=== PATIENT | male | born 1945 | race Caucasian/White ===

== ENCOUNTER 2022-10-21 15:42 | Emergency (ER) | payer MEDICARE, SELFPAY ==
[2022-10-21] VITALS (8 sets, daily range): BP systolic 173–178; BP diastolic 90–117; PULSE 67–82; RESP 16–24; TEMP 36.4; O2SAT 92–95; BMI 24.3
--- NOTE | 2022-10-21 15:43 | XRR_ITS ---
PROCEDURE INFORMATION: Exam: XR Chest Exam date and time: 10/21/2022 4:01 PM Age: 77 years old Clinical indication: Cough TECHNIQUE: Imaging protocol: Radiologic exam of the chest. Views: 1 view. COMPARISON: No relevant prior studies available. FINDINGS: Lungs: Right lower lobe pneumonia. Emphysematous changes. Pleural spaces: Unremarkable. No pleural effusion. No pneumothorax. Heart/Mediastinum: Unremarkable. No cardiomegaly. Bones/joints: Unremarkable. XR/XR chest 1V portable [id number] IMPRESSION: 1. Right lower lobe pneumonia. 2. Emphysematous changes.
--- NOTE | 2022-10-21 15:57 | W.ED.GENADLT ---
HPI - General Adult General: Chief complaint: General Medical Stated complaint: Coughing up blood Time Seen by Provider: 10/21/22 15:57 History of Present Illness: Mr. Bravo is a 77-year-old gentleman with history of tobaccoism though no longer smoker presenting to the emergency department for hematemesis. He notes symptoms began acutely approximately 1 week ago. He did not have significant cough preceding this and has persisted since that time. He notes essentially every time he coughs he has some dark red blood. He presents with a jar of saturated tissues that have just occurred today. He does note near baseline shortness of breath, denies other infectious symptoms. He saw PCP and was initiated on a course of antibiotics and steroids however symptoms persisted. He is not on anticoagulation. No other specific changes in health, exacerbating, or alleviating factors identified. Onset (ago): day(s) Severity: moderate Relieving factors: none Exacerbating factors: other Associated symptoms: Reports cough Review of Systems General: Reports: 10 or more systems reviewed and unremarkable except in HPI and below PFSH ED PFSH: Medical History History of smoking Surgical History (Updated 10/21/22 @ 16:23 by Ryan Cervantes MD) History of surgery of head Physical Exam Const: COMMON NORMALS: alert GENERAL APPEARANCE: cooperative, well developed and ill appearing (Mildly) HENMT: COMMON NORMALS: normocephalic and atraumatic HEAD & SCALP: normocephalic and atraumatic Eye: COMMON NORMALS: conjunctivae normal CONJUNCTIVA: Yes conjunctivae normal SCLERA: sclerae normal Neck/C-Spine: COMMON NORMALS: supple GENERAL: Yes trachea midline Resp: EFFORT & INSPECTION: Yes able to speak in complete sentences and Yes tachypneic AUSCULTATION: rhonchi Cardio: COMMON NORMALS: regular rate and regular rhythm RATE: regular rate RHYTHM: regular rhythm GI: COMMON NORMALS: Soft to palpation PALPATION: Yes Soft to palpation and No Tenderness to palpation present (GI) PERCUSSION: normal to percussion Extremity: GENERAL: Yes normal exam except as noted and No edema Neuro: COMMON NORMALS: moves all extremities SENSORIUM/ORIENTATION: Yes alert and No Orientation impaired Psych: COMMON NORMALS: mental status grossly normal and Normal thought process present THOUGHT PROCESS: Normal thought process present Course Vital Signs: Vital signs: Vital Signs Temperature 97.5 F L 10/21/22 15:47 Pulse Rate 77 03/19/23 21:14 Respiratory Rate 18 10/21/22 22:49 Blood Pressure 173/90 10/21/22 21:14 Pulse Oximetry 95 10/21/22 22:49 Oxygen Delivery Me thod 10/21/22 21:14 MDM - General Adult Medical Decision Making 77-year-old gentleman presenting with 1 week history of hemoptysis that started acutely without known provoking event. He has seen his primary care provider and has failed to improve on outpatient antibiotics. He presents with a glass jar filled with tissue that demonstrates dark red blood and reports that he is filled this 1 today and had 2 more that he filled over the past 10 days. Vitally patient is satisfactory and is nontoxic in appearance. Labs with no hematologic or significant metabolic abnormality. INR is normal. PCR viral panel is negative. Chest x-ray demonstrates concerning findings for pneumonia. Given hemoptysis and absence of other typical symptoms for pneumonia CTA is appropriate. CTA does not demonstrate clear etiology of patient's symptoms, he does have right middle lobe pneumonia and patchy right lower lobe groundglass opacities as well as mild mediastinal lymphadenopathy. Patient continues to have mild hemoptysis while in the emergency department. During ED course he was treated with steroids, RT treatment, cefepime and doxycycline for pneumonia. This is far more hemoptysis than I would expect from even a severe pneumonia and I am quite concerned for a bronchial lesion. We do not have pulmonology available at our facility at this time and in discussion with hospitalist service patient will almost certainly require pulmonology evaluation including bronchoscopy. Therefore we will look for transfer. The results of ED evaluation were discussed with the patient including plan for transfer due to requirement for level of care not available if discharged to prevent significant worsening/deterioration. Patient agreeable with plan. Patient accepted by Dr. Smith at [facility]. This is unfortunately the closest facility with appropriate subspecialty care and bed availability. Patient will be transferred via EMS. Medical Records I reviewed the patient's medical records. Lab Data I reviewed the patient's lab results. 10/21/22 16:17 10/21/22 16:17 Radiology Impressions Chest X-Ray 10/21/22 15:43 IMPRESSION: 1. Right lower lobe pneumonia. 2. Emphysematous changes. Chest CTA 10/21/22 16:06 IMPRESSION: 1. Negative for pulmonary embolus. 2. Right middle lobe pneumonic infiltrate, follow-up exam and 1 month to ensure resolution advised. Additional patchy right lower lobe ground-glass airspace infiltrates are suspected. 3. Several prominent mediastinal and hilar measuring to 9.5 mm, nonspecific. 4. Hepatic steatosis. 5. Diverticulosis without diverticulitis. 6. Coronary artery atherosclerotic calcifications. 7. Right kidney cyst, negative for follow-up advised. 8. Right kidney punctate nonobstructing calculus. 9. Scattered punctate benign pancreatic calcifications. Laboratory Results WBC 8.2 10^3/uL (4.0-10.0) 10/21/22 16:17 RBC 5.12 10^6/uL (4.1-5.3) 10/21/22 16:17 Hgb 14.8 g/dL (11.7-16.6) 10/21/22 16:17 Hct 45.4 % (42.0-52.0) 10/21/22 16:17 MCV 88.7 fl (80-94) 10/21/22 16:17 MCH 28.9 pg (28.0-34.0) 10/21/22 16:17 MCHC 32.6 g/dL (30.0-36.0) 10/21/22 16:17 RDW 13.8 % (12.1-15.1) 10/21/22 16:17 Plt Count 361 10^3/cmm (130-400) 10/21/22 16:17 MPV 8.7 fL (7.4-10.4) 10/21/22 16:17 Neut % (Auto) 71.1 % 10/21/22 16:17 Lymph % (Auto) 17.4 % 10/21/22 16:17 Wake % (Auto) 8.6 % 10/21/22 16:17 Eos % (Auto) 1.8 % 10/21/22 16:17 Baso % (Auto) 0.6 % 10/21/22 16:17 Neut # (Auto) 5.80 10^3/uL (1.8-7.7) 10/21/22 16:17 Lymph # (Auto) 1.4 10^3/uL (0.8-4.8) 10/21/22 16:17 Wake # (Auto) 0.7 10^3/uL (0.2-0.9) 10/21/22 16:17 Eos # (Auto) 0.2 10^3/uL (0.0-0.8) 10/21/22 16:17 Baso # (Auto) 0.1 10^3/uL (0.0-0.1) 10/21/22 16:17 Nucleated RBC % (auto) 0 % 10/21/22 16:17 Nucleated RBCs # 0.0 /100WBC 10/21/22 16:17 PT 14.20 SECONDS (12.1-14.9) 10/21/22 16:17 INR 1.06 (0.8-1.2) 10/21/22 16:17 APTT 31.4 SECONDS (23.9-36.7) 10/21/22 16:17 Sodium 138 mmol/L (136-145) 10/21/22 16:17 Potassium 4.0 mmol/L (3.5-5.1) 10/21/22 16:17 Chloride 100 mmol/L (98-107) 10/21/22 16:17 Carbon Dioxide 25 mmol/L (22-29) 10/21/22 16:17 Anion Gap 17.0 (5-19) 10/21/22 16:17 BUN 17 mg/dL (8-23) 10/21/22 16:17 Creatinine 0.8 mg/dL (0.7-1.2) 10/21/22 16:17 GFR Calculation Not Reportable 10/21/22 16:17 Glucose 110 mg/dL (65-115) 10/21/22 16:17 Calculated Osmolality 288 mOsm/kg (285-295) 10/21/22 16:17 Lactic Acid 1.0 mmol/L (0.5-2.2) 10/21/22 16:17 Calcium 9.9 mg/dL (8.5-10.5) 10/21/22 16:17 Total Bilirubin 0.4 mg/dL (0.15-1.2) 10/21/22 16:17 AST 23 U/L (0-40) 10/21/22 16:17 ALT 13 U/L (0-41) 10/21/22 16:17 Alkaline Phosphatase 115 U/L (40-130) 10/21/22 16:17 C-Reactive Protein 11.5 mg/L (0.0-4.9) H 10/21/22 16:17 NT-Pro-B Natriuret Pep 145 pg/mL (0-450) 10/21/22 16:17 Total Protein 8.0 g/dL (6.6-8.7) 10/21/22 16:17 Albumin 4.7 g/dL (3.5-5.2) 10/21/22 16:17 Globulin 3.3 g/dL (1.3-4.6) 10/21/22 16:17 Procalcitonin 0.04 ng/mL (0-0.5) 10/21/22 16:17 TSH 0.92 uIU/mL (0.27-4.20) 10/21/22 16:17 Nasal Influ A H1 2008 PCR Not detected (NOT DETECT) 10/21/22 16:15 Adenovirus (PCR) Not detected (NOT DETECT) 10/21/22 16:15 C. pneumoniae DNA (PCR) Not detected (NOT DETECT) 10/21/22 16:15 Coronavirus 229E (PCR) Not detected (NOT DETECT) 10/21/22 16:15 Human Metapneumovir PCR Not detected (NOT DETECT) 10/21/22 16:15 Influenza A (H1) PCR Not detected (NOT DETECT) 10/21/22 16:15 Influenza A (H3) PCR Not detected (NOT DETECT) 10/21/22 16:15 Influenza Type A (PCR) Not detected (NOT DETECT) 10/21/22 16:15 Influenza Type B (PCR) Not detected (NOT DETECT) 10/21/22 16:15 M. pneumoniae (PCR) Not detected (NOT DETECT) 10/21/22 16:15 Parainfluenza 1 (PCR) Not detected (NOT DETECT) 10/21/22 16:15 Parainfluenza 2 (PCR) Not detected (NOT DETECT) 10/21/22 16:15 Parainfluenza 3 (PCR) Not detected (NOT DETECT) 10/21/22 16:15 Parainfluenza 4 (PCR) Not detected (NOT DETECT) 10/21/22 16:15 RSV Type A (PCR) Not detected (NOT DETECT) 10/21/22 16:15 RSV Type B (PCR) Not detected (NOT DETECT) 10/21/22 16:15 Entero/Rhino (PCR) Not detected (NOT DETECT) 10/21/22 16:15 SARS-CoV-2 (PCR) Not detected (NOT DETECT) 10/21/22 16:15 Blood Type A Positive 10/21/22 16:55 Rho(D) Type Positive 10/21/22 16:55 Antibody Screen Negative 10/21/22 16:55 Discharge Plan Discharge Patient Disposition: Xfer Short-Term Hosp Clinical Impression: Cough with hemoptysis, History of smoking, Pneumonia Condition: Stable Coding Level of Care Code ED Past Due Accounts Clerk for Vasiliy Bell
--- NOTE | 2022-10-21 16:06 | CTR_ITS ---
PROCEDURE INFORMATION: Exam: CTA Chest With Contrast Exam date and time: 10/21/2022 5:35 PM Age: 77 years old Clinical indication: Other: Hemoptysis TECHNIQUE: Imaging protocol: Computed tomographic angiography of the chest with contrast. 3D rendering (Not supervised by radiologist): MIP and/or 3D reconstructed images were created by the technologist. Radiation optimization: All CT scans at this facility use at least one of these dose optimization techniques: automated exposure control; mA and/or kV adjustment per patient size (includes targeted exams where dose is matched to clinical indication); or iterative reconstruction. Contrast material: OMNI 350; Contrast volume: 66 ml; Contrast route: INTRAVENOUS (IV); REPORTING DATA: Count of CT and Cardiac NM exams in prior 12 months: This patient has received 0 known CTs and 0 known cardiac nuclear medicine studies in the 12 months prior to the current study. COMPARISON: CR (CHEST, ) 10/21/2022 4:01 PM RADIATION DOSE METRICS: Total DLP (mGy-cm): 368.54 FINDINGS: Pulmonary arteries: Normal. No pulmonary emboli. Aorta: Unremarkable. No aortic aneurysm. No aortic dissection. Lungs: Right middle lobe pneumonic infiltrate, follow-up exam an 1 month to ensure resolution advised. Additional patchy right lower lobe ground-glass airspace infiltrates are suspected. Pleural spaces: Unremarkable. No pneumothorax. No pleural effusion. Heart: Unremarkable. No cardiomegaly. No pericardial effusion. Coronary arteries: Coronary artery atherosclerotic calcifications. Lymph nodes: Unremarkable. No enlarged lymph nodes. Stomach and bowel: Diverticulosis without diverticulitis. Bones/joints: Unremarkable. No acute fracture. Soft tissues: Unremarkable. Other findings: Several prominent mediastinal and hilar measuring to 9.5 mm, nonspecific. Hepatic steatosis. Right kidney cyst, negative for follow-up advised. Right kidney punctate nonobstructing calculus. Scattered punctate benign pancreatic calcifications. CT/CT angio chest PE protcl [id number] IMPRESSION: 1. Negative for pulmonary embolus. 2. Right middle lobe pneumonic infiltrate, follow-up exam and 1 month to ensure resolution advised. Additional patchy right lower lobe ground-glass airspace infiltrates are suspected. 3. Several prominent mediastinal and hilar measuring to 9.5 mm, nonspecific. 4. Hepatic steatosis. 5. Diverticulosis without diverticulitis. 6. Coronary artery atherosclerotic calcifications. 7. Right kidney cyst, negative for follow-up advised. 8. Right kidney punctate nonobstructing calculus. 9. Scattered punctate benign pancreatic calcifications.
--- NOTE | 2022-10-21 16:07 | ECG_ITS ---
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
[2022-10-21] MEDS: iohexol 350 mg/mL 500 mL Btl (per mL) IV (16:19)
[2022-10-21 16:39] LABS: INR 1.06 (0.8-1.2)
[2022-10-21 16:40] LABS: Partial Thromboplastin Time 31.4 SECONDS (23.9-36.7)
[2022-10-21 16:42] LABS: Basophils # 0.1 10^3/uL (0.0-0.1); Basophils % 0.6 %; Eosinophils # 0.2 10^3/uL (0.0-0.8); Eosinophils % 1.8 %; Hematocrit 45.4 % (42.0-52.0); Hemoglobin 14.8 g/dL (11.7-16.6); Lymphocytes # 1.4 10^3/uL (0.8-4.8); Lymphocytes % 17.4 %; Mean Corpuscular HGB Conc 32.6 g/dL (30.0-36.0); Mean Corpuscular Hemoglobin 28.9 pg (28.0-34.0); Mean Corpuscular Volume 88.7 fl (80-94); Mean Platelet Volume 8.7 fL (7.4-10.4); Monocytes # 0.7 10^3/uL (0.2-0.9); Monocytes % 8.6 %; Neutrophils % 71.1 %; Nucleated Red Blood Cells % 0 %; Platelet Count 361 10^3/cmm (130-400); Red Blood Count 5.12 10^6/uL (4.1-5.3); Red Cell Distribution Width 13.8 % (12.1-15.1); White Blood Count 8.2 10^3/uL (4.0-10.0)
[2022-10-21 16:56] LABS: NT Pro B Type Natriuretic Pept 145 pg/mL (0-450); Procalcitonin 0.04 ng/mL (0-0.5); Thyroid Stimulating Hormone 0.92 uIU/mL (0.27-4.20)
[2022-10-21 17:07] LABS: Alanine Aminotransferase 13 U/L (0-41); Albumin Level 4.7 g/dL (3.5-5.2); Alkaline Phosphatase 115 U/L (40-130); Aspartate Amino Transferase 23 U/L (0-40); Blood Urea Nitrogen 17 mg/dL (8-23); C Reactive Protein 11.5 mg/L (0.0-4.9); Calcium 9.9 mg/dL (8.5-10.5); Carbon Dioxide 25 mmol/L (22-29); Chloride 100 mmol/L (98-107); Creatinine Clr Calc Pharmacy 81.6423; Globulin 3.3 g/dL (1.3-4.6); Glucose 110 mg/dL (65-115); Osmolality Calculated 288 mOsm/kg (285-295); Sodium 138 mmol/L (136-145); Total Bilirubin 0.4 mg/dL (0.15-1.2)
[2022-10-21] MEDS: cefepime 2,000 MG in sodium chloride 0.9% (plus) 50 ML 100 MG IV (18:22)
[2022-10-21 18:25] LABS: Adenovirus Not Detected (NOT DETECT); Chlamydia Pneumoniae Not Detected (NOT DETECT); Coronavirus 229E,HKU1,NL63,OC4 Not Detected (NOT DETECT); Human Metapneumovirus Not Detected (NOT DETECT); Human Rhinovirus/Enterovirus Not Detected (NOT DETECT); Influenza A Not Detected (NOT DETECT); Influenza A H1 Not Detected (NOT DETECT); Influenza A H1-2009 Not Detected (NOT DETECT); Influenza A H3 Not Detected (NOT DETECT); Influenza B Not Detected (NOT DETECT); Mycoplasma Pneumoniae Not Detected (NOT DETECT); Parainfluenza Virus Type 1 Not Detected (NOT DETECT); Parainfluenza Virus Type 2 Not Detected (NOT DETECT); Parainfluenza Virus Type 3 Not Detected (NOT DETECT); Parainfluenza Virus Type 4 Not Detected (NOT DETECT); Respiratory Syncytial Virus A Not Detected (NOT DETECT); Respiratory Syncytial Virus B Not Detected (NOT DETECT); SARS-COV-2 Not Detected (NOT DETECT)
[2022-10-21] MEDS: doxycycline 100 MG in sodium chloride 0.9% (plus) 100 ML IV (18:35)
[2022-10-21] MEDS: ipratropium-albuterol 3 mL Neb INHALATION (18:36)
[2022-10-21] MEDS: morphine 4 mg/mL SDV 1 mL IVP (21:34)
--- NOTE | 2022-10-25 11:20 | DCPLANNER ---
Addendum entered by Katharine Stinson 10/25/22 13:17: traffic incident management manager called patient due to no primary care physician - no answer at this time Original Note: 10.24.22 - TCM called patient due to no primary care physician - no answer at this time
== END 2022-10-21 22:55 | disposition short-term general hospital (02) ==
PROVIDERS: Emergency Provider Emergency Medicine
DX: R04.2 Hemoptysis (principal); J18.9 Pneumonia, unspecified organism; Z87.891 Personal history of nicotine dependence; Z20.822 Contact with and (suspected) exposure to COVID-19; K76.0 Fatty (change of) liver, not elsewhere classified; K57.90 Diverticulosis of intestine, part unspecified, without perforation or abscess without bleeding; N20.0 Calculus of kidney
CPT/HCPCS: 71045; 71275; 80053; 83605; 83880; 84145; 84443; 85025; 85610; 85730; 86140; 86850; 86900; 87040; 87486; 87581; 87633; 93005; 94640; 96365; 96367; 96375; 99285; J0692; J2270; J2930; J3490; Q9967

== ENCOUNTER 2023-11-19 05:24 | Emergency (ER) | payer MEDICARE, SELFPAY ==
[2023-11-19 05:26] VITALS: BP 189/99; PULSE 85; RESP 16; TEMP 35.6; O2SAT 100; BMI 25.0
--- NOTE | 2023-11-19 05:36 | ECG_ITS ---
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 Measurements Intervals [place] Rate: 92 P: 78 AL: 185 QRS: 79 QRSD: 88 T: 74 QT: 339 QTc: 420 Interpretive Statements SINUS RHYTHM Compared to ECG 10/21/2022 16:27:14 No significant changes Electronically Signed On 11-19-2023 12:28:23 CDT by Bala Jean M.D. [id number]
--- NOTE | 2023-11-19 05:45 | ED_ITS ---
Documented by User: Guillaume Mackenzie MD 11/19/23 06:22 HPI - GI Bleed 2 General: Chief complaint: GI Bleed Stated complaint: ABD PAIN Time Seen by Provider: 11/19/23 05:32 History of Present Illness: 78-year-old male presents emergency depa rtment via EMS personnel. Patient states that he is concerned that he is having black hard stools with blood. He states that he is recently been discharged from [facility] and thinks he was seen there for fever and chills. He states that he has noticed when he wipes himself after having a bowel movement he is noted some streaks of blood on the toilet paper. He states he feels like he is having difficulty with bowel movements and stated that he did have a bowel movement approximately 3 hours ago and was noted to have blood on the tissue paper at that time. Associated symptoms: Reports abdominal pain Review of Systems 2 General: Reports: 10 or more systems reviewed and unremarkable except in HPI and below GI: Reports: abdominal pain, constipation, pain on defecation, hematochezia and melena [facility] ED 2 PFSH: Medical History History of smoking Surgical History (Updated 10/21/22 @ 16:23 by Ryan Cervantes MD) History of surgery of head Physical Exam 2 Narrative: EXAM NARRATIVE: Constitutional: the patient appears well nourished and of normal development. Vital signs as documented. No acute distress at present. Alert and oriented-to person, place, time and situation. Head, eyes, ears, nose, mouth, throat: Normocephalic, atraumatic. Pupils-equal, round, reactive to light. No scleral icterus. Normal-appearing external ears. Normal appearing nasal turbinates, no drainage. No obvious oral lesions, posterior oropharynx without erythema or exudates. Neck: Supple, trachea is midline, no lymphadenopathy, no jugular venous distension, thyromegaly, or carotid bruits. Carotid upstrokes are brisk bilaterally. Lungs: clear to auscultation to all lung hahn. Symmetrical rise and fall of chest, no obvious signs of increased work of breathing at present. Cardiac: Regular rate and rhythm, positive S1, S2. No murmurs, rubs or gallops that I can appreciate Abdomen: Soft, non-tender to palpation, normal active bowel sounds to all quadrants. No palpable masses, no organomegaly and abdominal bruits. Extremities: 2+ pulses in the upper extremities that are equal bilaterally, 2+ pulses in the lower extremities that are equal bilaterally. Non-edematous. Moves all extremities well, sensation to all extremities are noted. Skin: Warm, dry, intact. Course 2 Vital Signs: Vital signs: Vital Signs Temperature 96.0 F L 11/19/23 05:26 Pulse Rate 93 11/19/23 07:04 Respiratory Rate 21 H 11/19/23 08:52 Blood Pressure 167/109 11/19/23 07:04 Pulse Oximetry 100 11/19/23 08:52 Oxygen Delivery Me thod Room Air 11/19/23 07:04 MDM - GI Bleed Medical Decision Making I have discussed the patient's case with the on-coming physician <Dr. Light > and they have assumed care of the patient. We have discussed the current lab/radiographic results that have been resulted and the pending tests. Medical Records I reviewed the patient's medical records. Lab Data 11/19/23 05:45 11/19/23 05:45 Laboratory Results WBC 6.14 10^3/uL (3.29-11.43) 11/19/23 05:45 RBC 4.57 10^6/uL (3.85-5.65) 11/19/23 05:45 Hgb 11.10 g/dL (11.27-16.99) L 11/19/23 05:45 Hct 36.0 % (37-53) L 11/19/23 05:45 MCV 78.8 fl (82-101) L 11/19/23 05:45 MCH 24.3 pg (27-33) L 11/19/23 05:45 MCHC 30.8 g/dL (30-55) 11/19/23 05:45 RDW 23.7 % (12.1-15.1) H 11/19/23 05:45 Plt Count 299 10^3/cmm (157-399) 11/19/23 05:45 MPV 8.3 fL (7.4-10.4) 11/19/23 05:45 Neut % (Auto) 66.4 % 11/19/23 05:45 Lymph % (Auto) 19.9 % 11/19/23 05:45 Frio % (Auto) 9.8 % 11/19/23 05:45 Eos % (Auto) 2.9 % 11/19/23 05:45 Baso % (Auto) 0.8 % 11/19/23 05:45 Neut # (Auto) 4.08 10^3/uL (1.8-7.7) 11/19/23 05:45 Lymph # (Auto) 1.2 10^3/uL (0.8-4.8) 11/19/23 05:45 Frio # (Auto) 0.6 10^3/uL (0.2-0.9) 11/19/23 05:45 Eos # (Auto) 0.2 10^3/uL (0.0-0.8) 11/19/23 05:45 Baso # (Auto) 0.1 10^3/uL (0.0-0.1) 11/19/23 05:45 Nucleated RBC % (auto) 0 % 11/19/23 05:45 Nucleated RBCs # 0.0 /100WBC 11/19/23 05:45 PT 13.70 SECONDS (12.1-14.9) 11/19/23 05:45 INR 1.02 (0.8-1.2) 11/19/23 05:45 APTT 32.3 SECONDS (23.9-36.7) 11/19/23 05:45 Sodium 139 mmol/L (136-145) 11/19/23 05:45 Potassium 4.1 mmol/L (3.5-5.1) 11/19/23 05:45 Chloride 103 mmol/L (98-107) 11/19/23 05:45 Carbon Dioxide 25 mmol/L (22-29) 11/19/23 05:45 Anion Gap 15.1 (5-19) 11/19/23 05:45 BUN 15 mg/dL (8-23) 11/19/23 05:45 Creatinine 0.6 mg/dL (0.7-1.2) L 11/19/23 05:45 GFR Calculation Not Reportable 11/19/23 05:45 Glucose 98 mg/dL (65-115) 11/19/23 05:45 Calculated Osmolality 289 mOsm/kg (285-295) 11/19/23 05:45 Calcium 9.7 mg/dL (8.5-10.5) 11/19/23 05:45 Total Bilirubin 0.3 mg/dL (0.15-1.2) 11/19/23 05:45 AST 18 U/L (0-40) 11/19/23 05:45 ALT 10 U/L (0-41) 11/19/23 05:45 Alkaline Phosphatase 115 U/L (40-130) 11/19/23 05:45 Total Protein 7.4 g/dL (6.6-8.7) 11/19/23 05:45 Albumin 4.2 g/dL (3.5-5.2) 11/19/23 05:45 Globulin 3.2 g/dL (1.3-4.6) 11/19/23 05:45 Lipase 12 U/L (13-60) L 11/19/23 05:45 All radiology interpretation(s) finalized by discharge Discharge Plan Discharge Patient Disposition: Home Clinical Impression: Hematochezia Low back pain Qualifiers: Chronicity: acute Back pain laterality: bilateral Sciatica presence: without sciatica Qualified Code(s): M54.50 - Low back pain, unspecified Condition: Stable Prescriptions: No Action ipratropium-albuterol 0.5 mg-3 mg(2.5 mg base)/3 mL solution for nebulization See Rx Instructions .ROUTE .COMPLEX Rx Instructions: Inhale THE contents of 1 vial PER NEBULIZER FOUR TIMES DAILY OR DIRECTED clopidogrel 75 mg tablet 75 mg PO DAILY hydrocodone-acetaminophen 10-325 mg tablet 1 tab PO Q6H PRN (Reason: Pain) aspirin 81 mg tablet,delayed release (DR/EC) 81 mg PO QAM tramadol 50 mg tablet 50 mg PO Q6H PRN (Reason: Pain, Moderate) amitriptyline 50 mg tablet 50 mg PO BEDTIME PRN (Reason: Sleep) magnesium oxide 400 mg (241.3 mg magnesium) tablet 400 mg PO DAILY tamsulosin 0.4 mg capsule 0.4 mg PO BEDTIME ropinirole 2 mg tablet 2 mg PO BEDTIME pantoprazole 40 mg tablet,delayed release (DR/EC) 40 mg PO BID FeroSul 325 mg (65 mg iron) tablet 325 mg PO BID gabapentin 300 mg capsule See Rx Instructions .ROUTE .COMPLEX Rx Instructions: TAKE THREE CAPSULES BY MOUTH THREE TIMES DAILY AND 2 CAPSULES EVERY NIGHT AT BEDTIME metoclopramide HCl 10 mg tablet See Rx Instructions .ROUTE .COMPLEX Rx Instructions: TAKE ONE TABLET BY MOUTH one hour before meals rosuvastatin 10 mg tablet See Rx Instructions .ROUTE .COMPLEX Rx Instructions: TAKE ONE TABLET BY MOUTH AT bedtime ON Saturday,Saturday, AND Saturday Discharge Orders: Discharge ED (Routine); Ordered 11/19/23 Ordered By: Adelfo Light Patient Instructions: Gastrointestinal Bleeding (ED), Acute Low Back Pain (ED) Activity Restrictions/Additional Instructions: Your evaluation in the ER which included lab work and CT scan did not show any acute cause of your low back pain or lower GI bleeding. Please follow-up with your family practice physician within next 7 days for further evaluation testing. This may include being referred to a GI specialist and/or colonoscopy. Coding Level of Care Code ED Continuity Manager for Chg Fwd Documented by User: Adelfo Light DO 11/19/23 15:48 HPI - GI Bleed 2 General: Chief complaint: GI Bleed Stated complaint: ABD PAIN Time Seen by Provider: 11/19/23 05:32 [facility] ED 2 PFSH: Medical History History of smoking Surgical History (Updated 10/21/22 @ 16:23 by Ryan Cervantes MD) History of surgery of head Course 2 Vital Signs: Vital signs: Vital Signs Temperature 96.0 F L 11/19/23 05:26 Pulse Rate 93 11/19/23 07:04 Respiratory Rate 21 H 11/19/23 08:52 Blood Pressure 167/109 11/19/23 07:04 Pulse Oximetry 100 11/19/23 08:52 Oxygen Delivery Me thod Room Air 11/19/23 07:04 MDM - GI Bleed Medical Decision Making I have discussed the patient's case with the on-coming physician <Dr. Light > and they have assumed care of the patient. We have discussed the current lab/radiographic results that have been resulted and the pending tests. Care was transferred to myself after shift change. Lab work was obtained which was essentially negative. CT scan of the abdomen pelvis was obtained which did not show any acute abnormalities for GI bleed or low back pain. Patient be referred back to his PCP for further workup and evaluation. Patient has hydrocodone at home he can take for his pain. Lab Data 11/19/23 05:45 11/19/23 05:45 Laboratory Results WBC 6.14 10^3/uL (3.29-11.43) 11/19/23 05:45 RBC 4.57 10^6/uL (3.85-5.65) 11/19/23 05:45 Hgb 11.10 g/dL (11.27-16.99) L 11/19/23 05:45 Hct 36.0 % (37-53) L 11/19/23 05:45 MCV 78.8 fl (82-101) L 11/19/23 05:45 MCH 24.3 pg (27-33) L 11/19/23 05:45 MCHC 30.8 g/dL (30-55) 11/19/23 05:45 RDW 23.7 % (12.1-15.1) H 11/19/23 05:45 Plt Count 299 10^3/cmm (157-399) 11/19/23 05:45 MPV 8.3 fL (7.4-10.4) 11/19/23 05:45 Neut % (Auto) 66.4 % 11/19/23 05:45 Lymph % (Auto) 19.9 % 11/19/23 05:45 Frio % (Auto) 9.8 % 11/19/23 05:45 Eos % (Auto) 2.9 % 11/19/23 05:45 Baso % (Auto) 0.8 % 11/19/23 05:45 Neut # (Auto) 4.08 10^3/uL (1.8-7.7) 11/19/23 05:45 Lymph # (Auto) 1.2 10^3/uL (0.8-4.8) 11/19/23 05:45 Frio # (Auto) 0.6 10^3/uL (0.2-0.9) 11/19/23 05:45 Eos # (Auto) 0.2 10^3/uL (0.0-0.8) 11/19/23 05:45 Baso # (Auto) 0.1 10^3/uL (0.0-0.1) 11/19/23 05:45 Nucleated RBC % (auto) 0 % 11/19/23 05:45 Nucleated RBCs # 0.0 /100WBC 11/19/23 05:45 PT 13.70 SECONDS (12.1-14.9) 11/19/23 05:45 INR 1.02 (0.8-1.2) 11/19/23 05:45 APTT 32.3 SECONDS (23.9-36.7) 11/19/23 05:45 Sodium 139 mmol/L (136-145) 11/19/23 05:45 Potassium 4.1 mmol/L (3.5-5.1) 11/19/23 05:45 Chloride 103 mmol/L (98-107) 11/19/23 05:45 Carbon Dioxide 25 mmol/L (22-29) 11/19/23 05:45 Anion Gap 15.1 (5-19) 11/19/23 05:45 BUN 15 mg/dL (8-23) 11/19/23 05:45 Creatinine 0.6 mg/dL (0.7-1.2) L 11/19/23 05:45 GFR Calculation Not Reportable 11/19/23 05:45 Glucose 98 mg/dL (65-115) 11/19/23 05:45 Calculated Osmolality 289 mOsm/kg (285-295) 11/19/23 05:45 Calcium 9.7 mg/dL (8.5-10.5) 11/19/23 05:45 Total Bilirubin 0.3 mg/dL (0.15-1.2) 11/19/23 05:45 AST 18 U/L (0-40) 11/19/23 05:45 ALT 10 U/L (0-41) 11/19/23 05:45 Alkaline Phosphatase 115 U/L (40-130) 11/19/23 05:45 Total Protein 7.4 g/dL (6.6-8.7) 11/19/23 05:45 Albumin 4.2 g/dL (3.5-5.2) 11/19/23 05:45 Globulin 3.2 g/dL (1.3-4.6) 11/19/23 05:45 Lipase 12 U/L (13-60) L 11/19/23 05:45 Discharge Plan Discharge Patient Disposition: Home Clinical Impression: Hematochezia Low back pain Qualifiers: Chronicity: acute Back pain laterality: bilateral Sciatica presence: without sciatica Qualified Code(s): M54.50 - Low back pain, unspecified Condition: Stable Prescriptions: No Action ipratropium-albuterol 0.5 mg-3 mg(2.5 mg base)/3 mL solution for nebulization See Rx Instructions .ROUTE .COMPLEX Rx Instructions: Inhale THE contents of 1 vial PER NEBULIZER FOUR TIMES DAILY OR DIRECTED clopidogrel 75 mg tablet 75 mg PO DAILY hydrocodone-acetaminophen 10-325 mg tablet 1 tab PO Q6H PRN (Reason: Pain) aspirin 81 mg tablet,delayed release (DR/EC) 81 mg PO QAM tramadol 50 mg tablet 50 mg PO Q6H PRN (Reason: Pain, Moderate) amitriptyline 50 mg tablet 50 mg PO BEDTIME PRN (Reason: Sleep) magnesium oxide 400 mg (241.3 mg magnesium) tablet 400 mg PO DAILY tamsulosin 0.4 mg capsule 0.4 mg PO BEDTIME ropinirole 2 mg tablet 2 mg PO BEDTIME pantoprazole 40 mg tablet,delayed release (DR/EC) 40 mg PO BID FeroSul 325 mg (65 mg iron) tablet 325 mg PO BID gabapentin 300 mg capsule See Rx Instructions .ROUTE .COMPLEX Rx Instructions: TAKE THREE CAPSULES BY MOUTH THREE TIMES DAILY AND 2 CAPSULES EVERY NIGHT AT BEDTIME metoclopramide HCl 10 mg tablet See Rx Instructions .ROUTE .COMPLEX Rx Instructions: TAKE ONE TABLET BY MOUTH one hour before meals rosuvastatin 10 mg tablet See Rx Instructions .ROUTE .COMPLEX Rx Instructions: TAKE ONE TABLET BY MOUTH AT bedtime ON Saturday,Saturday, AND Saturday Discharge Orders: Discharge ED (Routine); Ordered 11/19/23 Ordered By: Adelfo Light Patient Instructions: Gastrointestinal Bleeding (ED), Acute Low Back Pain (ED) Activity Restrictions/Additional Instructions: Your evaluation in the ER which included lab work and CT scan did not show any acute cause of your low back pain or lower GI bleeding. Please follow-up with your family practice physician within next 7 days for further evaluation testing. This may include being referred to a GI specialist and/or colonoscopy. Coding Level of Care Code ED Continuity Manager for Vasiliy Bell
[2023-11-19 05:53] VITALS: BP 214/90; PULSE 82; RESP 17; O2SAT 91
[2023-11-19 05:54] LABS: Basophils # 0.1 10^3/uL (0.0-0.1); Basophils % 0.8 %; Eosinophils # 0.2 10^3/uL (0.0-0.8); Eosinophils % 2.9 %; Lymphocytes # 1.2 10^3/uL (0.8-4.8); Lymphocytes % 19.9 %; Mean Corpuscular HGB Conc 30.8 g/dL (30-55); Mean Corpuscular Hemoglobin 24.3 pg (27-33); Mean Corpuscular Volume 78.8 fl (82-101); Mean Platelet Volume 8.3 fL (7.4-10.4); Monocytes # 0.6 10^3/uL (0.2-0.9); Monocytes % 9.8 %; Neutrophils # 4.08 10^3/uL (1.8-7.7); Neutrophils % 66.4 %; Nucleated Red Blood Cells % 0 %; Platelet Count 299 10^3/cmm (157-399); Red Blood Count 4.57 10^6/uL (3.85-5.65); Red Cell Distribution Width 23.7 % (12.1-15.1); White Blood Count 6.14 10^3/uL (3.29-11.43)
[2023-11-19 06:08] LABS: INR 1.02 (0.8-1.2)
[2023-11-19 06:09] LABS: Partial Thromboplastin Time 32.3 SECONDS (23.9-36.7)
[2023-11-19 06:13] LABS: Alanine Aminotransferase 10 U/L (0-41); Albumin Level 4.2 g/dL (3.5-5.2); Alkaline Phosphatase 115 U/L (40-130); Anion Gap 15.1 (5-19); Aspartate Amino Transferase 18 U/L (0-40); Blood Urea Nitrogen 15 mg/dL (8-23); Calcium 9.7 mg/dL (8.5-10.5); Carbon Dioxide 25 mmol/L (22-29); Chloride 103 mmol/L (98-107); Creatinine Clr Calc Pharmacy 76.3991; Globulin 3.2 g/dL (1.3-4.6); Glucose 98 mg/dL (65-115); Lipase 12 U/L (13-60); Osmolality Calculated 289 mOsm/kg (285-295); Potassium 4.1 mmol/L (3.5-5.1); Sodium 139 mmol/L (136-145); Total Bilirubin 0.3 mg/dL (0.15-1.2); Total Protein 7.4 g/dL (6.6-8.7)
[2023-11-19 07:04] VITALS: BP 167/109; PULSE 93; RESP 18; O2SAT 97
--- NOTE | 2023-11-19 07:22 | CT_ITS ---
WS: [id number] CT ABDOMEN PELVIS TECHNIQUE: Contrast-enhanced CT of the abdomen and pelvis with coronal and sagittal reformatted image s. CLINICAL INFORMATION: lower gi bleed, back pain COMPARISON: None. DLP: 17.[address] scans at [facility] use at least one of these dose optimization techniques: automated e xposure control; mA and/or kV adjustment per patient size (includes targeted exams where dose is matc hed to clinical indication); or iterative reconstruction. FINDINGS: Lung bases are well aerated. Mild diffuse fatty infiltration of the liver. Normal portal vein and spl enic vein. Pancreatic calcifications compatible with chronic pancreatitis. Pancreatic atrophy. Spleni c granulomas. Small esophageal hernia. Urine distended bladder. Mild prostate enlargement. Extensive sigmoid diverticulosis. No definite roscoe dence of acute diverticulitis. Mild cecal constipation and RIGHT colon constipation. No evidence of s mall or large bowel obstruction. Adrenal glands are normal. No hydronephrosis in either kidney. RIGHT renal cyst. Moderate aortic atheromatous disease. 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 Tiny fat-containing umbilical hernia. Moderate spondylitic changes lumbar spine. IMPRESSION: Some images degraded by respiratory and motion artifact. 1. Extensive sigmoid diverticulosis. No evidence of acute diverticulitis. 2. Mild RIGHT colon and cecal constipation. 3. No evidence of small or large bowel obstruction.
[2023-11-19] MEDS: ondansetron 2 mg/ML SDV 2 mL 4 MG IVP (07:26)
[2023-11-19] MEDS: ketorolac 30 mg/mL INJ IVP (07:26)
[2023-11-19] MEDS: iohexol 350 mg/mL 500 mL Btl (per mL) IV (08:11)
[2023-11-19 08:52] VITALS: RESP 21; O2SAT 100
[2023-11-19] MEDS: morphine 4 mg/mL SDV 1 mL IVP (08:52)
== END 2023-11-19 09:49 | disposition home or self-care (01) ==
PROVIDERS: Emergency Provider Internal Medicine
DX: M54.50 Low back pain, unspecified (principal); K92.1 Melena; Z79.02 Long term (current) use of antithrombotics/antiplatelets; Z79.82 Long term (current) use of aspirin
CPT/HCPCS: 74177; 80053; 83690; 85025; 85610; 85730; 93005; 96374; 96375; 99285; J1885; J2270; J2405; Q9967